=== PATIENT | female | born 1945 | race American Indian/Alaskan Native ===

== ENCOUNTER 2021-08-02 06:43 | Day surgery (SDC) | payer MEDICARE ==
[2021-08-02] MEDS ORDERED: ASPIRIN EC 325 MG TAB PO ONE (08:01)
[2021-08-02 08:24] LABS: Basophils % (Auto) 0.7 % (0.0-1.8); Eosinophils # (Auto) 0.1 K/mm3 (0.0-0.4); Hematocrit 34.9 % (30.3-42.9); Hemoglobin 11.2 gm/dl (10.1-14.3); Lymphocytes # (Auto) 1.5 K/mm3 (1.2-5.4); Lymphocytes % (Auto) 27.2 % (13.4-35.0); Mean Corpuscular HGB Conc 32 % (30-34); Mean Corpuscular Volume 77 fl (79-97); Monocytes # (Auto) 0.3 K/mm3 (0.0-0.8); Monocytes % (Auto) 5.7 % (0.0-7.3); Platelet Count 230 K/mm3 (140-440); Red Blood Count 4.56 M/mm3 (3.65-5.03); Red Cell Distribution Width 15.9 % (13.2-15.2)
[2021-08-02 08:34] LABS: INR 0.85 (0.87-1.13)
[2021-08-02 08:35] LABS: BUN/Creatinine Ratio 19; Blood Urea Nitrogen 19 mg/dL (7-17); Calcium 9.3 mg/dL (8.4-10.2); Hemolysis Index 14
[2021-08-02] MEDS ORDERED: SODIUM CHLORIDE 0.9% 500 ML 500 ML IV SCH (09:00)
[2021-08-02] MEDS ORDERED: HEPARIN/NS 5000 UNIT/500ML 1,000 ML IR ONE (09:41)
[2021-08-02] MEDS ORDERED: LIDOCAINE (2%) 20 MG/1 ML VIAL 20 ML MDV INFILTRATI ONE ×4 (09:42→10:43)
[2021-08-02] MEDS ORDERED: NITROGLYCERIN SYRINGE 3 ML ONE (09:42)
[2021-08-02] MEDS ORDERED: MIDAZOLAM 2 MG/2 ML INJ ONE (09:42)
[2021-08-02] MEDS ORDERED: fentaNYL 100 MCG/2 ML INJ ONE (09:42)
[2021-08-02] MEDS ORDERED: HEPARIN 10,000 UNITS/10 ML VIAL ONE (09:42)
[2021-08-02] MEDS ORDERED: VERAPAMIL 5 MG/2 ML INJ ONE (09:42)
[2021-08-02] MEDS ORDERED: MIDAZOLAM 2 MG/2 ML INJ IV ONE ×2 (10:08→10:32)
[2021-08-02] MEDS ORDERED: fentaNYL 100 MCG/2 ML INJ IV ONE ×2 (10:09→10:32)
[2021-08-02] MEDS ORDERED: VERAPAMIL 5 MG/2 ML INJ ART-SHEATH ONE ×2 (10:10→10:34)
[2021-08-02] MEDS ORDERED: HEPARIN 10,000 UNITS/10 ML VIAL ART-SHEATH ONE ×2 (10:10→10:34)
[2021-08-02] MEDS ORDERED: NITROGLYCERIN 600 MCG/3 ML SYRINGE ART-SHEATH ONE ×2 (10:11→10:34)
[2021-08-02] MEDS ORDERED: HEPARIN 2,000 UNIT in SODIUM CHLORIDE 0.9% 500 ML 1,000 ML IR ONE (10:12)
[2021-08-02] MEDS ORDERED: traMADol 50 MG TAB PO PRN (11:01)
--- NOTE | 2021-08-02 11:04 | Discharge Summary ---
Short Stay Discharge Plan Activity: advance as tolerated Diet: low cholesterol, low salt Wound: keep clean and dry Special Instructions: no heavy lifting (3 days) Follow up with: MARCO A IRIZARRY MD [Primary Care Provider] - 7 Days PALMA CAMILO MD [Staff Physician] - 7 Days
[2021-08-02] MEDS ORDERED: SODIUM CHLORIDE 0.9% 1000 ML 1,000 ML IV SCH (11:15)
--- NOTE | 2021-08-02 11:58 | Electrocardiograph Report ---
[facility] Test Date: 2021-08-02 Test Time: 07:53:11 Pat Name: SARKIS ZARATE Department: Room: Gender: F [employer]: ESSIE : 1945 Requested By: PALMA CAMILO Order Number: [id number] Reading MD: Erik Kelly Measurements Intervals [place] Rate: 52 P: 43 [place]: 163 QRS: 32 QRSD: 109 T: 64 QT: 636 QTc: 589 Interpretive Statements Sinus rhythm non specfici st-t No previous ECG available for comparison Electronically Signed On 08-02-2021 11:57:46 EDT by Erik Kelly
--- NOTE | 2021-08-02 13:36 | Cardiac Catherization Report ---
DATE OF SERVICE: 08/02/2021 CARDIAC CATHETERIZATION REPORT REASON FOR PROCEDURE: Abnormal thallium stress test. PROCEDURES PERFORMED: 1. Left heart catheterization. 2. Selective left and right coronary angiography. 3. Left ventricular angiography. 4. Sedation time start 10:32, end 10:53. DESCRIPTION OF PROCEDURE: The patient was prepped and draped in a sterile fashion after informed consent. The right radial cath site was prepped and draped after negative Bebeto's test. We initially went into the right radial artery without difficulty, and placed a 6-[place] hydrophilic sheath. Coronary angiography and coronary cannulation via the right radial approach was difficult due to severe tortuosity in the brachiocephalic and right subclavian vessels. After several unsuccessful attempts at optimal cannulation, we turned our attention to the right femoral artery. The right femoral cath site was then anesthetized, and using the Seldinger technique, a 6-[place] sheath was inserted into right femoral artery. Following this, left and right coronary catheterization and angiography were completed without difficulty. We then exchanged for a pigtail catheter for left ventricular angiography. The catheters were then removed, sheath removed, hemostasis of the femoral site using an Angio-Seal device and the right radial site using a TR band. The patient was returned to the postprocedure unit in stable condition. There were no complications. FINDINGS: HEMODYNAMICS: Left ventricular end-diastolic pressure was 23, following coronary angiography. Ascending aortic pressure was 168/75. There was no significant pressure gradient on pullback across the aortic valve. CORONARY ANGIOGRAPHY: Left main coronary artery contained mild proximal narrowing, but was free of significant disease. The left anterior descending artery and its diagonal branches were free of significant disease. A large ramus intermedius artery was free of significant disease. The circumflex artery and its obtuse marginal branches were free of significant disease. The right coronary artery was dominant and similarly angiographically normal. Left ventricular systolic function was well preserved, ejection fraction 55-60%. CONCLUSION: 1. Essentially, angiographically normal coronary arteries. 2. Well preserved left ventricular systolic function, ejection fraction 55-60%. RECOMMENDATIONS: Risk factor modification and medical therapy. TID: [id number] RECEIPT: [id number] [place]
[2021-08-02 14:24] VITALS: BP 142/72
== END 2021-08-02 15:03 | disposition home or self-care (01) ==
LOC: CATHLABREC 06:43
PROVIDERS: ATTEND Internal Medicine Cardiovascular Disease
DX: R94.39 Abnormal result of other cardiovascular function study (principal); R06.00 Dyspnea, unspecified; I48.91 Unspecified atrial fibrillation; I10 Essential (primary) hypertension; E78.5 Hyperlipidemia, unspecified; J45.909 Unspecified asthma, uncomplicated; F32.9 Major depressive disorder, single episode, unspecified; H40.9 Unspecified glaucoma; F17.210 Nicotine dependence, cigarettes, uncomplicated; Z79.899 Other long term (current) drug therapy; Z90.710 Acquired absence of both cervix and uterus; Z98.890 Other specified postprocedural states
CPT/HCPCS: 36415; 80048; 85025; 85610; 85730; 93005; 93458; 99156; C1760; C1769; C1894; J1644; J2250; J3010; J7040; Q9967